=== PATIENT | male | born 1940 ===

== ENCOUNTER → 2025-01-12 09:07 | Outpatient (CLI) | payer OTHER ==
[2025-01-12 10:18] LABS: INR 0.96
[2025-01-12 10:33] LABS: COL EPI 172 SECONDS (82-175)
[2025-01-13 12:11] LABS: kappa lambda r 1.30 (0.26-1.65); kappa light 24.1 mg/L (3.3-19.4)
[2025-01-14 08:10] LABS: IMM A 99 mg/dL (61-437); IMM G 1161 mg/dL (603-1613); IMM M 42 mg/dL (15-143); a:g ratio 1.4 (0.7-1.7); alpha 1 g 0.2 g/dL (0.0-0.4); beta g 0.9 g/dL (0.7-1.3); gamma g 1.0 g/dL (0.4-1.8); globulin t 2.7 g/dL (2.2-3.9); prot total 6.6 g/dL (6.0-8.5)
[2025-01-14 18:07] LABS: BETA-2-MICROGLOBULINA 2.4 mg/L (0.6-2.4)
== END | disposition home or self-care (01) ==
LOC: LAB 09:07
PROVIDERS: ATTEND Internal Medicine Hematology & Oncology
DX: D47.2 Monoclonal gammopathy (principal); D68.32 Hemorrhagic disorder due to extrinsic circulating anticoagulants; D63.1 Anemia in chronic kidney disease; N18.32 Chronic kidney disease, stage 3b; I10 Essential (primary) hypertension; C61 Malignant neoplasm of prostate; D32.9 Benign neoplasm of meninges, unspecified; D68.8 Other specified coagulation defects